=== PATIENT | female | born 1965 | race African-American/Black ===

== ENCOUNTER 2017-04-20 14:01 | Emergency (ER) | payer OTHER ==
[~2017-04-20] VITALS: Ht 167.6 cm; Wt 111.6 kg
[2017-04-20] MEDS ORDERED: METFORMIN HCL500 MG PO (14:17)
[2017-04-20] MEDS ORDERED: ANTIVERT25 MG PO ×2 (14:18→16:35)
[2017-04-20 14:28] LABS: URINE BILIRUBIN NEGATIVE (Negative); URINE BLOOD TRACE (Negative); URINE COLOR YELLOW; URINE GLUCOSE-RANDOM* NEGATIVE (Negative); URINE KETONES 2+ (Negative); URINE NITRITE NEGATIVE (Negative); URINE PROTEIN (DIPSTICK) 1+ (Negative)
[2017-04-20 15:09] LABS: ABSOLUTE NEUTROPHILS 3.4 thou/uL (1.4-8.2); BASOPHILS 0.6 % (0.0-2.0); EOSINOPHILS 0.8 % (0.0-3.0); HEMATOCRIT 26.3 % (37.0-47.0); LYMPHOCYTES 12.9 % (24.0-44.0); MCH 29.6 pg (26.0-34.0); MCV 86.8 fL (80.0-100.0); MONOCYTES 5.6 % (1.0-8.0); PLATELET COUNT 158 thou/uL (150-400); POLYS 80.1 % (36.0-66.0); RBC 3.03 mil/uL (4.20-5.00); RDW 13.7 % (10.5-14.5); WBC 4.2 thou/uL (4.0-11.0)
[2017-04-20 15:10] LABS: MANUAL DIFF NO
[2017-04-20 15:21] LABS: CASTS None Seen /LPF (None Seen); CRYSTALS None Seen /LPF (None Seen); SQUAMOUS 0-3 Few /LPF (0-3)
[2017-04-20 15:22] LABS: BACTERIA 1-9 Few /HPF (None Seen); URINE RBC 0-2 Rare /HPF (0-2); URINE WBC None Seen /HPF (0-5)
[2017-04-20] MEDS ORDERED: PHENERGAN 25 MG25 M1 PO ×2 (15:34→16:35)
[2017-04-20] MEDS ORDERED: PROMS25 WY RECTAL ×2 (15:34→16:35)
[2017-04-20] MEDS ORDERED: ZOFRAN ODT4 MG PO ×2 (15:34→16:35)
[2017-04-20 16:30] LABS: ALBUMIN 4.2 g/dL (3.4-5.0); CALCIUM 9.2 mg/dL (8.5-10.1); CREATININE 0.8 mg/dL (0.6-1.0); DIRECT BILIRUBIN 0.2 mg/dL (<0.1-0.3); POTASSIUM 3.3 mmol/L (3.5-5.1); TOTAL BILIRUBIN 0.7 mg/dL (<0.1-1.0); TOTAL PROTEIN 6.7 g/dL (6.4-8.2)
[2017-04-20 16:55] VITALS: BP 128/84
== END 2017-04-20 16:55 | disposition home or self-care (01) ==
LOC: ER 14:01
PROVIDERS: Emergency Medicine
DX: D64.9 Anemia, unspecified (principal); R11.2 Nausea with vomiting, unspecified; E11.9 Type 2 diabetes mellitus without complications; E78.00 Pure hypercholesterolemia, unspecified; I10 Essential (primary) hypertension; F10.99 Alcohol use, unspecified with unspecified alcohol-induced disorder; Z91.018 Allergy to other foods; Z91.011 Allergy to milk products